=== PATIENT | female | born 1935 | race Caucasian/White ===

== ENCOUNTER 2021-11-15 21:44 | Inpatient (IN) | payer MEDICARE, MEDICAID ==
[2021-11-15] MEDS ORDERED: Sodium Chloride 0.9% 10 ML Syringe FLUSH PRN (22:32)
[2021-11-15] MEDS: HYDROmorphone 1 MG/ML Syringe IVPUSH PRN (22:36)
[2021-11-15 23:05] LABS: CHLORIDE,CL 99 mEq/L (98-106); SODIUM,NA 136 mEq/L (136-145)
[2021-11-16] MEDS ORDERED: Docusate Sodium 100 MG Cap PO PRN (00:35)
[2021-11-16] MEDS ORDERED: Ondansetron 4 MG/2 ML SDV IV PRN (00:35)
[2021-11-16] MEDS ORDERED: Non-Formulary Medication 1 Each (Fentanyl [Fentanyl] 1 EACH Patch.Td72) TD SCH (00:35)
[2021-11-16] MEDS ORDERED: Enoxaparin 40 MG/0.4 ML Syringe SUBCUT SCH (00:35)
[2021-11-16] MEDS ORDERED: Ondansetron 4 MG Tab.DIS PO PRN (00:35)
[2021-11-16] MEDS: HYDROmorphone 1 MG/ML Syringe IVPUSH PRN ×4 (00:58→19:42)
[2021-11-16] MEDS: oxyCODONE 5 MG Tab PO PRN ×2 (04:03→10:12)
[2021-11-16] MEDS: Acetaminophen 500 MG Tab PO SCH ×2 (10:05→19:37)
[2021-11-16] MEDS: Enoxaparin 40 MG/0.4 ML Syringe SUBCUT SCH (10:06)
[2021-11-16] MEDS ORDERED: diphenhydrAMINE 50 MG/ML SDV IVPUSH ONE (10:50)
[2021-11-16] MEDS ORDERED: predniSONE 20 MG Tab PO STA (10:52)
[2021-11-16] MEDS ORDERED: Iopamidol 755 Mg/ML 100 ML Bottle IVPUSH ONE (11:05)
[2021-11-16] MEDS ORDERED: Barium Sulfate Oral Susp 450 ML Bottle PO ONE (11:05)
[2021-11-17 07:37] LABS: CHLORIDE,CL 97 mEq/L (98-106); SODIUM,NA 135 mEq/L (136-145)
[2021-11-17] MEDS: HYDROmorphone 1 MG/ML Syringe IVPUSH PRN ×2 (07:52→16:40)
[2021-11-17] MEDS: Acetaminophen 500 MG Tab PO SCH ×2 (07:53→19:33)
[2021-11-17] MEDS: Enoxaparin 40 MG/0.4 ML Syringe SUBCUT SCH (07:53)
[2021-11-17] MEDS: Docusate Sodium 100 MG Cap PO SCH (19:33)
[2021-11-17] MEDS ORDERED: fentaNYL 12 MCG/HR Transdermal Patch TRDERM SCH (20:00)
[2021-11-17] MEDS: Sodium Chloride 0.9% 1,000 ML IV SCH (21:14)
[2021-11-18] MEDS: HYDROmorphone 1 MG/ML Syringe IVPUSH PRN ×6 (00:43→20:52)
[2021-11-18] MEDS: Sodium Chloride 0.9% 1,000 ML IV SCH ×3 (01:43→17:29)
[2021-11-18] MEDS: Enoxaparin 40 MG/0.4 ML Syringe SUBCUT SCH (07:50)
[2021-11-18] MEDS: Docusate Sodium 100 MG Cap PO SCH ×2 (07:50→19:14)
[2021-11-18] MEDS: Acetaminophen 500 MG Tab PO SCH ×2 (07:50→19:14)
[2021-11-18] MEDS ORDERED: fentaNYL 12 MCG/HR Transdermal Patch TRDERM SCH (08:00)
[2021-11-18 08:32] LABS: CHLORIDE,CL 100 mEq/L (98-106); SODIUM,NA 135 mEq/L (136-145)
[2021-11-18] MEDS: oxyCODONE 5 MG Tab PO PRN (16:17)
[2021-11-19] MEDS: Sodium Chloride 0.9% 1,000 ML IV SCH (00:43)
[2021-11-19] MEDS: HYDROmorphone 1 MG/ML Syringe IVPUSH PRN ×5 (02:10→14:35)
[2021-11-19] MEDS: oxyCODONE 5 MG Tab PO PRN (06:23)
[2021-11-19] MEDS: Docusate Sodium 100 MG Cap PO SCH (07:32)
[2021-11-19] MEDS: Acetaminophen 500 MG Tab PO SCH (07:32)
[2021-11-19] MEDS: Enoxaparin 40 MG/0.4 ML Syringe SUBCUT SCH (07:32)
[2021-11-19 09:21] LABS: CHLORIDE,CL 102 mEq/L (98-106); SODIUM,NA 137 mEq/L (136-145)
== END 2021-11-19 15:31 | disposition swing bed (61) | DRG 948 ==
LOC: CC.ED 21:44 → CC.MS 11-16 00:10 → UNDOADMIN 11-16 00:10 → CC.MS 11-16 00:13
PROVIDERS: ADMIT Nurse Practitioner Family; ATTEND Nurse Practitioner Family
DX: G89.3 Neoplasm related pain (acute) (chronic) (principal); C79.51 Secondary malignant neoplasm of bone; R42 Dizziness and giddiness; R53.1 Weakness; R00.2 Palpitations; C50.919 Malignant neoplasm of unspecified site of unspecified female breast; Z85.3 Personal history of malignant neoplasm of breast; Z91.013 Allergy to seafood; W19.XXXA Unspecified fall, initial encounter; Z88.8 Allergy status to other drugs, medicaments and biological substances; Z90.49 Acquired absence of other specified parts of digestive tract; Z90.710 Acquired absence of both cervix and uterus; Z79.899 Other long term (current) drug therapy
CPT/HCPCS: 36415; 71045; 72132; 73560-LT; 73560-RT; 74177; 80048; 80053; 81003; 83615; 84484; 85025; 86140; 93005; 96374; 97161-GP; 99285-25; A9270-GY; J1170; J1200; J1650; J7030; J7512; Q9967

== ENCOUNTER 2021-11-19 15:38 | Inpatient (IN) | payer MEDICARE, MEDICAID ==
[2021-11-19] MEDS: HYDROmorphone 1 MG/ML Syringe IVPUSH PRN ×2 (18:05→22:14)
[2021-11-19] MEDS ORDERED: HYDROmorphone 1 MG/ML Syringe ONE (18:31)
[2021-11-19] MEDS ORDERED: Lactated Ringers 1,000 ML IV SCH (19:45)
[2021-11-19] MEDS ORDERED: oxyCODONE 5 MG Tab PO PRN (19:47)
[2021-11-19] MEDS ORDERED: Ondansetron 4 MG/2 ML SDV IV PRN (19:47)
[2021-11-19] MEDS ORDERED: Sodium Chloride 0.9% 10 ML Syringe FLUSH PRN ×2 (19:47)
[2021-11-19] MEDS ORDERED: Ondansetron 4 MG Tab.DIS PO PRN (19:47)
[2021-11-19] MEDS ORDERED: HYDROmorphone 1 MG/ML Syringe IVPUSH PRN (19:47)
[2021-11-19] MEDS: fentaNYL 25 MCG/HR Transdermal Patch TRDERM SCH (20:00)
[2021-11-19] MEDS ORDERED: Docusate Sodium 100 MG Cap PO SCH (20:00)
[2021-11-19] MEDS ORDERED: Acetaminophen 500 MG Tab PO SCH (20:00)
[2021-11-19] MEDS: Acetaminophen 500 MG Tab PO SCH (20:11)
[2021-11-19] MEDS ORDERED: HYDROmorphone 1 MG/ML Syringe IVPUSH SCH (20:15)
[2021-11-20] MEDS: HYDROmorphone 1 MG/ML Syringe IVPUSH PRN ×4 (01:44→14:17)
[2021-11-20] MEDS: Acetaminophen 500 MG Tab PO SCH ×2 (07:50→19:45)
[2021-11-20] MEDS ORDERED: Enoxaparin 40 MG/0.4 ML Syringe SUBCUT SCH (08:00)
[2021-11-20] MEDS ORDERED: Ketorolac 30 MG/ML SDV IVPUSH STA (12:32)
[2021-11-20] MEDS: HYDROmorphone 1 MG/ML Syringe IVPUSH SCH ×2 (17:34→23:32)
[2021-11-20] MEDS ORDERED: Lidocaine 5% 700 MG Patch TOP SCH (17:45)
[2021-11-20] MEDS: Lidocaine 5% 700 MG Patch TOP SCH (19:44)
[2021-11-20] MEDS ORDERED: fentaNYL 12 MCG/HR Transdermal Patch TRDERM SCH (20:00)
[2021-11-21] MEDS: HYDROmorphone 1 MG/ML Syringe IVPUSH SCH ×3 (05:00→18:12)
[2021-11-21] MEDS: Acetaminophen 500 MG Tab PO SCH ×2 (07:42→19:45)
[2021-11-21] MEDS: HYDROmorphone 1 MG/ML Syringe IVPUSH PRN ×4 (07:51→22:52)
[2021-11-21] MEDS: Lidocaine 5% 700 MG Patch TOP SCH (19:45)
[2021-11-22] MEDS: HYDROmorphone 1 MG/ML Syringe IVPUSH SCH ×3 (00:33→11:58)
[2021-11-22] MEDS: Acetaminophen 500 MG Tab PO SCH ×2 (08:03→19:26)
[2021-11-22] MEDS: HYDROmorphone 1 MG/ML Syringe IVPUSH PRN ×5 (08:09→23:00)
[2021-11-22] MEDS: Lidocaine 5% 700 MG Patch TOP SCH (19:25)
[2021-11-22] MEDS: Morphine 15 MG Tab.ER PO SCH (19:26)
[2021-11-22] MEDS: fentaNYL 25 MCG/HR Transdermal Patch TRDERM SCH (19:27)
[2021-11-23] MEDS: HYDROmorphone 1 MG/ML Syringe IVPUSH PRN ×7 (03:44→22:10)
[2021-11-23] MEDS: Acetaminophen 500 MG Tab PO SCH ×2 (07:29→19:39)
[2021-11-23] MEDS: Morphine 15 MG Tab.ER PO SCH ×2 (07:30→19:39)
[2021-11-23] MEDS: fentaNYL 25 MCG/HR Transdermal Patch TRDERM SCH (12:06)
[2021-11-23] MEDS: Lidocaine 5% 700 MG Patch TOP SCH (19:41)
[2021-11-24] MEDS: HYDROmorphone 1 MG/ML Syringe IVPUSH PRN ×4 (05:01→17:53)
[2021-11-24] MEDS: Acetaminophen 500 MG Tab PO SCH ×2 (07:24→19:13)
[2021-11-24] MEDS: Morphine 15 MG Tab.ER PO SCH ×2 (07:24→19:13)
[2021-11-24] MEDS: Lidocaine 5% 700 MG Patch TOP SCH (19:13)
[2021-11-25] MEDS: HYDROmorphone 1 MG/ML Syringe IVPUSH PRN ×7 (00:23→20:25)
[2021-11-25] MEDS: Acetaminophen 500 MG Tab PO SCH ×2 (07:47→20:23)
[2021-11-25] MEDS: Morphine 15 MG Tab.ER PO SCH ×2 (07:48→20:22)
[2021-11-25] MEDS: Lidocaine 5% 700 MG Patch TOP SCH (20:24)
[2021-11-25] MEDS: fentaNYL 25 MCG/HR Transdermal Patch TRDERM SCH (20:24)
[2021-11-26] MEDS: HYDROmorphone 1 MG/ML Syringe IVPUSH PRN ×8 (02:06→22:40)
[2021-11-26] MEDS: Morphine 15 MG Tab.ER PO SCH ×2 (07:37→20:06)
[2021-11-26] MEDS: Acetaminophen 500 MG Tab PO SCH ×2 (07:37→20:06)
[2021-11-26] MEDS: fentaNYL 50 MCG/HR Transdermal Patch TRDERM SCH (12:39)
[2021-11-26] MEDS: fentaNYL 25 MCG/HR Transdermal Patch TRDERM SCH (13:37)
[2021-11-26] MEDS: Gabapentin 100 MG Cap PO SCH (20:06)
[2021-11-26] MEDS: Lidocaine 5% 700 MG Patch TOP SCH (20:07)
[2021-11-27] MEDS: Acetaminophen 500 MG Tab PO SCH ×2 (07:41→19:30)
[2021-11-27] MEDS: Morphine 15 MG Tab.ER PO SCH ×2 (07:41→19:28)
[2021-11-27] MEDS: Gabapentin 100 MG Cap PO SCH ×3 (07:42→19:29)
[2021-11-27] MEDS: HYDROmorphone 1 MG/ML Syringe IVPUSH PRN ×3 (10:34→16:42)
[2021-11-27] MEDS: Lidocaine 5% 700 MG Patch TOP SCH (19:26)
[2021-11-28] MEDS: HYDROmorphone 1 MG/ML Syringe IVPUSH PRN ×4 (05:36→17:01)
[2021-11-28] MEDS: Morphine 15 MG Tab.ER PO SCH ×2 (07:33→19:36)
[2021-11-28] MEDS: Acetaminophen 500 MG Tab PO SCH ×2 (07:33→19:37)
[2021-11-28] MEDS: Gabapentin 100 MG Cap PO SCH ×3 (07:33→19:37)
[2021-11-28] MEDS: Lidocaine 5% 700 MG Patch TOP SCH (19:36)
[2021-11-29] MEDS: HYDROmorphone 1 MG/ML Syringe IVPUSH PRN ×2 (04:07→16:01)
[2021-11-29] MEDS: Acetaminophen 500 MG Tab PO SCH ×2 (07:21→19:39)
[2021-11-29] MEDS: Morphine 15 MG Tab.ER PO SCH ×2 (07:22→19:38)
[2021-11-29] MEDS: Gabapentin 100 MG Cap PO SCH ×3 (07:22→19:39)
[2021-11-29] MEDS: fentaNYL 50 MCG/HR Transdermal Patch TRDERM SCH (11:40)
[2021-11-29] MEDS: Lidocaine 5% 700 MG Patch TOP SCH (19:37)
[2021-11-30] MEDS: HYDROmorphone 1 MG/ML Syringe IVPUSH PRN ×2 (05:43→11:55)
[2021-11-30] MEDS: Gabapentin 100 MG Cap PO SCH ×3 (07:38→20:04)
[2021-11-30] MEDS: Morphine 15 MG Tab.ER PO SCH ×2 (07:38→20:04)
[2021-11-30] MEDS: Acetaminophen 500 MG Tab PO SCH ×2 (07:39→20:04)
[2021-11-30] MEDS: Lidocaine 5% 700 MG Patch TOP SCH (20:03)
[2021-12-01] MEDS: HYDROmorphone 1 MG/ML Syringe IVPUSH PRN ×2 (03:29→06:10)
[2021-12-01] MEDS: Acetaminophen 500 MG Tab PO SCH ×2 (07:49→19:45)
[2021-12-01] MEDS: Gabapentin 100 MG Cap PO SCH ×3 (07:49→19:46)
[2021-12-01] MEDS: Morphine 15 MG Tab.ER PO SCH ×2 (07:49→19:46)
[2021-12-01] MEDS: Lidocaine 5% 700 MG Patch TOP SCH (19:45)
[2021-12-02] MEDS: HYDROmorphone 1 MG/ML Syringe IVPUSH PRN ×3 (03:06→12:23)
[2021-12-02] MEDS: Acetaminophen 500 MG Tab PO SCH ×2 (07:34→19:44)
[2021-12-02] MEDS: Morphine 15 MG Tab.ER PO SCH ×2 (07:34→19:44)
[2021-12-02] MEDS: Gabapentin 100 MG Cap PO SCH ×4 (07:35→19:44)
[2021-12-02] MEDS: fentaNYL 50 MCG/HR Transdermal Patch TRDERM SCH (12:07)
[2021-12-02] MEDS: Morphine 4 MG/ML VIAL IVPUSH PRN (16:00)
[2021-12-02] MEDS: Lidocaine 5% 700 MG Patch TOP SCH (19:44)
[2021-12-03] MEDS: HYDROmorphone 1 MG/ML Syringe IVPUSH PRN (02:44)
[2021-12-03] MEDS: Morphine 4 MG/ML VIAL IVPUSH PRN (05:20)
[2021-12-03] MEDS: Acetaminophen 500 MG Tab PO SCH ×2 (07:41→19:47)
[2021-12-03] MEDS: Morphine 15 MG Tab.ER PO SCH ×3 (07:41→19:48)
[2021-12-03] MEDS: Gabapentin 100 MG Cap PO SCH ×3 (07:42→19:47)
[2021-12-03] MEDS ORDERED: SIMETH PO PRN ×3 (11:03)
[2021-12-03] MEDS ORDERED: MAG HYDROX PO PRN ×3 (11:03)
[2021-12-03] MEDS ORDERED: ALUM HYDROX PO PRN ×3 (11:03)
[2021-12-03] MEDS ORDERED: DIPHENHYDRAMINE PO PRN ×3 (11:03)
[2021-12-03] MEDS ORDERED: LIDOCAINE 2% PO PRN ×3 (11:03)
[2021-12-03] MEDS ORDERED: HYDROmorphone 1 MG/ML Syringe IVPUSH SCH (11:45)
[2021-12-03] MEDS ORDERED: fentaNYL 75 MCG/HR Transdermal Patch TRDERM SCH ×2 (12:00→20:00)
[2021-12-03] MEDS ORDERED: HYDROmorphone 1 MG/ML Syringe IVPUSH PRN (13:00)
[2021-12-03] MEDS: Lidocaine 5% 700 MG Patch TOP SCH (19:47)
[2021-12-04] MEDS: Morphine 15 MG Tab.ER PO SCH ×3 (07:50→19:45)
[2021-12-04] MEDS: Gabapentin 100 MG Cap PO SCH ×3 (07:51→19:45)
[2021-12-04] MEDS: Acetaminophen 500 MG Tab PO SCH ×2 (07:51→19:46)
[2021-12-04] MEDS ORDERED: Morphine Oral Concentrate 20 MG/ML 30 ML Bottle PO PRN (09:06)
[2021-12-04] MEDS: Morphine Oral Concentrate 20 MG/ML 30 ML Bottle PO PRN (10:55)
[2021-12-04] MEDS: Lidocaine 5% 700 MG Patch TOP SCH (19:43)
[2021-12-05] MEDS: Acetaminophen 500 MG Tab PO SCH ×2 (07:35→19:47)
[2021-12-05] MEDS: Gabapentin 100 MG Cap PO SCH ×3 (07:36→19:48)
[2021-12-05] MEDS: Morphine 15 MG Tab.ER PO SCH ×3 (07:36→19:47)
[2021-12-05] MEDS: Morphine Oral Concentrate 20 MG/ML 30 ML Bottle PO PRN ×2 (10:46→15:30)
[2021-12-05] MEDS: Lidocaine 5% 700 MG Patch TOP SCH (19:47)
[2021-12-06] MEDS: Morphine Oral Concentrate 20 MG/ML 30 ML Bottle PO PRN (04:04)
[2021-12-06] MEDS: Morphine 15 MG Tab.ER PO SCH (07:27)
[2021-12-06] MEDS: Acetaminophen 500 MG Tab PO SCH (07:27)
[2021-12-06] MEDS: Gabapentin 100 MG Cap PO SCH (07:28)
[2021-12-06] MEDS ORDERED: Acetaminophen 500 MG Tab ONE (08:00)
== END 2021-12-06 09:43 | DRG 948 ==
LOC: CC.MS 15:38 → UNDOADMIN 15:38 → CC.MS 19:47
PROVIDERS: ADMIT Nurse Practitioner Family; ATTEND Nurse Practitioner Family
DX: G89.3 Neoplasm related pain (acute) (chronic) (principal); C79.51 Secondary malignant neoplasm of bone; M89.8X9 Other specified disorders of bone, unspecified site; M54.6 Pain in thoracic spine; R53.1 Weakness; Z66 Do not resuscitate; C50.919 Malignant neoplasm of unspecified site of unspecified female breast; Z20.822 Contact with and (suspected) exposure to COVID-19; E66.9 Obesity, unspecified; Z68.32 Body mass index [BMI] 32.0-32.9, adult; Z79.899 Other long term (current) drug therapy
CPT/HCPCS: 51702; A9270-GY; J1170; J1650; J1885; J2270; J7120; U0002